=== PATIENT | female | born 1985 | race Two or more races ===

== ENCOUNTER 2024-08-12 15:44 | Emergency (ER) | payer MEDICAID, SELFPAY ==
[2024-08-12 15:44] VITALS: BMI 25.0
[2024-08-12 15:50] VITALS: BP 108/75; PULSE 96; RESP 18; TEMP 38.4; O2SAT 96
--- NOTE | 2024-08-12 15:59 | PD.EDURI ---
Upper Respiratory Inf. RME/HPI General Chief Complaint: Flu Like Symptoms Stated Complaint: HEADACHE AND BODY ACHE X3DAYS NAUSEA/VOMITING ALSO Time Seen by Provider: 08/12/24 15:57 Arrival date/time: 08/12/24 15:44 38-year-old female presents emerged department complains of headache, body aches x 3 days patient reports nausea without vomiting patient reports fever and chills. Patient reports no chance of patient reports no dysuria Limitations: no limitations Related Data Previous Rx's ?Medication ?Instructions ?Recorded amoxicillin 500 mg-potassium 1 tab PO QDAY #5 tabs 03/29/22 clavulanate 125 mg tablet (Augmentin) benzonatate 100 mg capsule 100 mg PO TID #14 caps 08/12/24 ibuprofen 600 mg tablet 600 mg PO Q6H #30 tabs 08/12/24 ondansetron 4 mg disintegrating 4 mg PO Q8H PRN nausea and 08/12/24 tablet vomiting #10 tabs Allergies Allergy/AdvReac Type Severity Reaction Status Date / Time No Known Allergies Allergy Verified 08/12/24 15:46 Review of Systems Review of Systems Systems Reviewed: All systems reviewed, normal except as documented Constitutional Constitutional: Reports system reviewed and no additional complaints, except as documented, Reports body ache(s), Reports chills, Reports fever(s) and Reports headache(s) Eyes Eyes: Reports system reviewed and no additional complaints, except as documented and Denies blurry vision ENT Ears, Nose, Mouth, and Throat: Reports system reviewed and no additional complaints, except as documented, Reports headache(s), Reports nasal congestion and Reports nasal discharge Cardiovascular Cardiovascular: Reports system reviewed and no additional complaints, except as documented, Denies chest pain and Denies dyspnea Respiratory Respiratory: Reports system reviewed and no additional complaints, except as documented, Reports chest congestion, Reports cough and Denies dyspnea Gastrointestinal Gastrointestinal: Reports system reviewed and no additional complaints, except as documented and Denies abdominal pain Integumentary/Breasts Skin/Breast: Reports system reviewed and no additional complaints, except as documented and Denies rash Neurologic Neurologic: Reports system reviewed and no additional complaints, except as documented, Reports as per HPI and Reports headache(s) Past Medical History Past Medical History NEUROLOGIC: Negative Neurological Disorders, Seizures or Peripheral Neuropathy CARDIAC: Negative Cardiac Disorders, Atrial Fibrillation, Angina, Hypercholesterolemia, Congestive Heart Failure, Deep Vein Thrombosis or Hypertension RESPIRATORY: Negative Chronic Obstructive Pulmonary Disease (COPD) or Sleep Apnea GASTROINTESTINAL: Negative Gastrointestinal Disorders or Diverticulitis GENITOURINARY: Negative Genitourinary Disorders or Renal Disease REPRODUCTIVE: Negative Pelvic Inflammatory Disease MUSCULOSKELETAL: Negative Musculoskeletal Disorders, Arthritis, Rheumatoid Arthritis or Osteoporosis ENT: Negative Blind ENDOCRINE: Negative Endocrine Disorders, Diabetes Mellitus Type 1 or Diabetes Mellitus Type 2 HEMATOLOGIC: Positive Anemia PSYCHO/SOCIAL: Negative Schizophrenia OTHER HISTORY: Negative Autoimmune Disease, Blood Transfusions, Anesthesia Reactions, Chemotherapy, MRSA, Clostridium Difficile or Cancer Family History FAMILY HISTORY: Negative Family Respiratory Disorders, Family Cardiac Disorders or Family Cancer Surgical History SURGICAL: Positive Section; Negative Coronary Artery Bypass Graft, Pacemaker, Eye Surgery, Bowel Surgery, Nephrectomy, Joint Replacement or Mastectomy Social History SMOKING STATUS: Never smoker SUBSTANCE USE: does not use ED Exam General Limitations: Present no limitations General appearance: Present alert and in no apparent distress Head Head exam: Present atraumatic Eye Eye exam: Present normal appearance, PERRL and EOMI; Absent conjunctival injection ENT ENT exam: Present normal exam, normal oropharynx and mucous membranes moist Neck Neck exam: Present normal inspection, full ROM and trachea midline; Absent tenderness, meningismus, lymphadenopathy or thyromegaly Chest Chest inspection: Present normal inspection and symmetric chest wall rise Respiratory Respiratory exam: Present normal lung sounds bilaterally; Absent respiratory distress or wheezes Cardiovascular Cardiovascular exam: Present regular rate, normal rhythm and normal heart sounds Abdominal Exam Abdominal exam: Present soft and normal bowel sounds Extremities Exam Extremities exam: Present normal inspection and full ROM Back Exam Back exam: Present normal inspection and full ROM Neurological Exam Neurological exam: Present alert, oriented X3 and CN II-XII intact Psychiatric Psychiatric exam: Present normal affect and normal mood Skin Skin exam: Present warm, dry, intact and normal color Course Quality Measures none Orders Category Date Time Status Bedside COVID-19 Antigen Test NOW Care 08/12/24 15:58 Completed Bedside Influenza A&B Antigen Test NOW Care 08/12/24 15:58 Completed Ibuprofen Tab [Motrin Tab] Med 08/12/24 15:58 Discontinued 600 mg PO X1 ONE Ondansetron Odt [Zofran Odt] Med 08/12/24 15:58 Discontinued 4 mg PO X1 ONE Vital Signs Vital signs: Vital Signs Temperature 101.1 F H 08/12/24 15:50 Pulse Rate 96 08/12/24 15:50 Respiratory Rate 18 08/12/24 15:50 Blood Pressure 108/75 08/12/24 15:50 Pulse Oximetry (%) 96 08/12/24 15:50 Oxygen Delivery Method Room Air 08/12/24 15:50 O2 saturation 96% room air within normal limits Upper Respiratory Infection MDM Narrative MDM Narrative:: 38-year-old female presents emergency department complains of headache, body aches x 3 days patient reports nausea without vomiting patient reports fever and chills. Patient reports no chance of patient reports no dysuria On exam despite having fever patient does not appear toxic Patient checked for flu and COVID patient came back positive for the flu Patient discharged home in no distress to follow-up with primary care doctor in the next 24 to 48 hours and for any worsening symptoms to return to the ER immediately Patient data External records reviewed:: [facility] previous records Clinical information provided by:: patient Social determinants that could affect healthcare access:: none Patient has the following chronic illnesses:: None How is presenting disease/condition affected by chronic disease/condition?: no chronic disease Evaluation data The following diagnostics were reviewed and interpreted by me:: lab results Lab and/or radiology exams considered but not ordered:: Patient checked for flu and COVID Interpretation Summary: Patient tested positive for flu Medications / Prescriptions Medications or Prescriptions considered but not ordered:: Given Medication administrations:: Medication Administration History Discontinued Medications Ibuprofen (Ibuprofen Tab 600 Mg Tablet) 600 mg PO X1 ONE Stop: 08/12/24 15:59 Last Admin: 08/12/24 16:07 Dose: 600 mg Documented By: SHIREEN Ondansetron HCl (Ondansetron Odt 4 Mg Tabrap) 4 mg PO X1 ONE; Protocol Stop: 08/12/24 15:59 Last Admin: 08/12/24 16:07 Dose: 4 mg Documented By: SHIREEN Given Consultations Consultation(s) initiated? (list below): No Diagnosis Upper Respiratory Differential Diagnosis: upper respiratory infection, otitis media, sinusitis, viral infection and bronchitis Most likely diagnosis given after review of the tests above:: Influenza Admission Indicated Admission indicated?: not indicated Admission Request Was there a request for admission?: No Disposition Plan Disposition Plan: Discharge Discharge Attestation Discharge Attestation: The patient and all family members were given an opportunity to ask questions and understood the discharge instructions. Discharge instructions specifically effects, indications for sooner follow up or return to the emergency department, and the expected course of current diagnosis. Patient condition: Stable Discharge Plan Plan Patient Disposition: HOME (Self Care) Disposition Comment: Stable Prescriptions/Referrals Prescriptions/Med Rec: New benzonatate 100 mg capsule 100 mg PO TID Qty: 14 0RF ibuprofen 600 mg tablet 600 mg PO Q6H Qty: 30 0RF ondansetron 4 mg tablet,disintegrating 4 mg PO Q8H PRN (Reason: nausea and vomiting) Qty: 10 0RF No Action amoxicillin-pot clavulanate [Augmentin] 500-125 mg tablet 1 tab PO QDAY Qty: 5 0RF Problem List Clinical Impression: Influenza Patient/Caregiver Discharge Instructions Education Materials: ED Influenza (Adult) Additional Instructions: Please follow up with your primary care doctor in the next 24-48hrs for any worsening symptoms return here immediately Print Language: Bengali Stand Alone Forms: Denise Award Info., Patient Portal Info Letter PA/ADMINISTRATION CLERK Supervising Physician PA/ADMINISTRATION CLERK Supervising Physician: Dr. cheung
[2024-08-12] MEDS: ONDANSETRON ODT 4 MG TABRAP PO (16:07)
[2024-08-12] MEDS: IBUPROFEN TAB 600 MG TABLET PO (16:07)
== END 2024-08-12 16:22 | disposition home or self-care (01) ==
LOC: SERX 16:09
PROVIDERS: Emergency Provider Nurse Practitioner Primary Care; PCP Physician Assistant Medical
DX: J11.1 Influenza due to unidentified influenza virus with other respiratory manifestations (principal)
CPT/HCPCS: 87400; 87811; 99283; Q0162; A9270

== ENCOUNTER 2025-02-14 10:00 | Emergency (ER) | payer MEDICAID, SELFPAY ==
[2025-02-14 10:07] VITALS: BP 113/67; PULSE 68; RESP 16; TEMP 36.6; O2SAT 99; BMI 23.0
--- NOTE | 2025-02-14 10:21 | XR_ITS ---
Examination: Foot, right, 3 views Technique: AP, oblique, lateral views foot, 3 views Date and time of exam: February 14, 2025 1030 hours INDICATIONS: Patient fell today with injury to the foot, foot pain. FINDINGS: No acute foot fracture Please see the ankle report IMPRESSION: No acute foot fracture
--- NOTE | 2025-02-14 10:21 | XR_ITS ---
EXAMINATION: Ankle, right 3 views Technique: Ankle AP, oblique, lateral 3 views Date and time of exam: February 14, 2025 1030 hours INDICATIONS: Patient fell today with injury to the ankle, ankle pain. FINDINGS: Acute fracture fibular tip without significant displacement No ankle dislocation IMPRESSION: Acute fracture fibular tip
--- NOTE | 2025-02-14 10:21 | PD.EDANKLE ---
Lower Extremity Injury RME/HPI General Chief Complaint: Ankle/Foot Injury Stated Complaint: RIGHT ANKLE INJURY / PAIN STEPPING IN HOLE Time Seen by Provider: 02/14/25 10:06 Arrival date/time: 02/14/25 10:00 39-year-old female presents emergency department today for complaint of right ankle pain patient reports he twisted her ankle on Friday while walking. Patient was no head or neck injury no other injuries Limitations: no limitations Related Data Previous Rx's ?Medication ?Instructions ?Recorded amoxicillin 500 mg-potassium 1 tab PO QDAY #5 tabs 03/29/22 clavulanate 125 mg tablet (Augmentin) benzonatate 100 mg capsule 100 mg PO TID #14 caps 08/12/24 ibuprofen 600 mg tablet 600 mg PO Q6H #30 tabs 08/12/24 ondansetron 4 mg disintegrating 4 mg PO Q8H PRN nausea and 08/12/24 tablet vomiting #10 tabs hydrocodone 5 mg-acetaminophen 325 1 tab PO BID PRN pain #10 tabs 02/14/25 mg tablet ibuprofen 600 mg tablet 600 mg PO Q6H #30 tabs 02/14/25 Allergies Allergy/AdvReac Type Severity Reaction Status Date / Time No Known Allergies Allergy Verified 02/14/25 10:03 Review of Systems Review of Systems Systems Reviewed: All systems reviewed, normal except as documented Constitutional Constitutional: Reports system reviewed and no additional complaints, except as documented, Denies fever(s) and Denies headache(s) Eyes Eyes: Reports system reviewed and no additional complaints, except as documented and Denies blurry vision ENT Ears, Nose, Mouth, and Throat: Reports system reviewed and no additional complaints, except as documented, Denies headache(s), Denies nasal congestion and Denies nasal discharge Cardiovascular Cardiovascular: Reports system reviewed and no additional complaints, except as documented, Denies chest pain and Denies dyspnea Respiratory Respiratory: Reports system reviewed and no additional complaints, except as documented, Denies chest congestion, Denies cough and Denies dyspnea Gastrointestinal Gastrointestinal: Reports system reviewed and no additional complaints, except as documented and Denies abdominal pain Musculoskeletal Musculoskeletal: Reports system reviewed and no additional complaints, except as documented, Reports abnormal gait, Reports arthralgias, Denies deformity and Reports joint swelling Integumentary/Breasts Skin/Breast: Reports system reviewed and no additional complaints, except as documented and Denies rash Neurologic Neurologic: Reports system reviewed and no additional complaints, except as documented, Reports as per HPI, Reports abnormal gait and Denies headache(s) Past Medical History Past Medical History NEUROLOGIC: Negative Neurological Disorders, Seizures or Peripheral Neuropathy CARDIAC: Negative Cardiac Disorders, Atrial Fibrillation, Angina, Hypercholesterolemia, Congestive Heart Failure, Deep Vein Thrombosis or Hypertension RESPIRATORY: Negative Chronic Obstructive Pulmonary Disease (COPD) or Sleep Apnea GASTROINTESTINAL: Negative Gastrointestinal Disorders or Diverticulitis GENITOURINARY: Negative Genitourinary Disorders or Renal Disease REPRODUCTIVE: Negative Pelvic Inflammatory Disease MUSCULOSKELETAL: Negative Musculoskeletal Disorders, Arthritis, Rheumatoid Arthritis or Osteoporosis ENT: Negative Blind ENDOCRINE: Negative Endocrine Disorders, Diabetes Mellitus Type 1 or Diabetes Mellitus Type 2 HEMATOLOGIC: Positive Anemia PSYCHO/SOCIAL: Negative Schizophrenia OTHER HISTORY: Negative Autoimmune Disease, Blood Transfusions, Anesthesia Reactions, Chemotherapy, MRSA, Clostridium Difficile or Cancer Family History FAMILY HISTORY: Negative Family Respiratory Disorders, Family Cardiac Disorders or Family Cancer Surgical History SURGICAL: Positive Section; Negative Coronary Artery Bypass Graft, Pacemaker, Eye Surgery, Bowel Surgery, Nephrectomy, Joint Replacement or Mastectomy Social History SMOKING STATUS: Never smoker SUBSTANCE USE: does not use ED Exam General Limitations: Present no limitations General appearance: Present alert and in no apparent distress Head Head exam: Present atraumatic Eye Eye exam: Present normal appearance, PERRL and EOMI ENT ENT exam: Present normal exam, normal oropharynx and mucous membranes moist Neck Neck exam: Present normal inspection, full ROM and trachea midline Chest Chest inspection: Present normal inspection and symmetric chest wall rise Respiratory Respiratory exam: Present normal lung sounds bilaterally Cardiovascular Cardiovascular exam: Present regular rate, normal rhythm and normal heart sounds Abdominal Exam Abdominal exam: Present soft and normal bowel sounds Extremities Exam Extremities exam: Present normal inspection, full ROM and tenderness (Right foot pain) Back Exam Back exam: Present normal inspection and full ROM Neurological Exam Neurological exam: Present alert, oriented X3, CN II-XII intact, normal gait and reflexes normal; Absent motor sensory deficit Psychiatric Psychiatric exam: Present normal affect and normal mood Skin Skin exam: Present warm, dry, intact and normal color Course Quality Measures none Orders Category Date Time Status Crutches .NOW Care 02/14/25 11:08 Completed Splint / Immobilizer STAT Care 02/14/25 11:08 Completed XR ankle comp RT min 3V Stat Exams 02/14/25 10:21 Completed XR foot comp RT min 3V Stat Exams 02/14/25 10:21 Completed Vital Signs Vital signs: Vital Signs Temperature 97.9 F 02/14/25 10:07 Pulse Rate 68 02/14/25 10:07 Respiratory Rate 16 02/14/25 10:07 Blood Pressure 113/67 02/14/25 10:07 Pulse Oximetry (%) 99 02/14/25 10:07 Oxygen Delivery Method Room Air 02/14/25 10:07 O2 saturation 99% room air within normal limits Procedures -ED Splint Fabrication: Clinician Made Type: Posterior Leg Reason for Splint: Optimal Positioning and Pain Management Circulation Distal to Splint: Yes Movement Distal to Splint: Yes Senation Distal to Splint: Yes Tolerance: Tolerates Well Extremity Injury, Lower MDM Narrative MDM Narrative:: 39-year-old female presents emergency department today for complaint of right ankle pain patient reports he twisted her ankle on Friday while walking. Patient was no head or neck injury no other injuries Imaging of the right ankle obtained pt has fibular tip fracture no deformity noted Patient placed in a posterior short leg splint given crutches Patient discharged home in no distress to follow-up with primary care doctor in the next 24 to 48 hours and for any worsening symptoms to return to the ER immediately Patient data External records reviewed:: [facility] previous records Clinical information provided by:: patient Social determinants that could affect healthcare access:: none Patient has the following chronic illnesses:: None How is presenting disease/condition affected by chronic disease/condition?: no chronic disease Evaluation data The following diagnostics were reviewed and interpreted by me:: radiology exam(s) Lab and/or radiology exams considered but not ordered:: Radiology obtain Interpretation Summary: Reviewed by me Medications / Prescriptions Medications or Prescriptions considered but not ordered:: Given Medication administrations:: Given Consultations Consultation(s) initiated? (list below): No Diagnosis Extremity Injury, Lower Differential Diagnosis: ankle sprain and strain and ankle fracture Most likely diagnosis given after review of the tests above:: Ankle sprain Admission Indicated Admission indicated?: not indicated Admission Request Was there a request for admission?: No Disposition Plan Disposition Plan: Discharge Discharge Attestation Discharge Attestation: The patient and all family members were given an opportunity to ask questions and understood the discharge instructions. Discharge instructions specifically effects, indications for sooner follow up or return to the emergency department, and the expected course of current diagnosis. Patient condition: Stable Discharge Plan Plan Patient Disposition: HOME (Self Care) Discharge Disposition comment: Stable Prescriptions/Referrals Prescriptions/Med Rec: New hydrocodone-acetaminophen 5-325 mg tablet 1 tab PO BID MDD 10 PRN (Reason: pain) Qty: 10 0RF ibuprofen 600 mg tablet 600 mg PO Q6H Qty: 30 0RF No Action amoxicillin-pot clavulanate [Augmentin] 500-125 mg tablet 1 tab PO QDAY Qty: 5 0RF benzonatate 100 mg capsule 100 mg PO TID Qty: 14 0RF ibuprofen 600 mg tablet 600 mg PO Q6H Qty: 30 0RF ondansetron 4 mg tablet,disintegrating 4 mg PO Q8H PRN (Reason: nausea and vomiting) Qty: 10 0RF Referrals: No Primary/Family,Physician [Primary Care Provider] - 02/15/25 Problem List Clinical Impression: Fracture of distal end of fibula Patient/Caregiver Discharge Instructions Education Materials: How Bones Heal Additional Instructions: Please follow up with your primary care doctor in the next 24-48hrs for any worsening symptoms return here immediately Please remain nonweightbearing please follow-up with PCP as discussed for worsening symptoms return immediately Print Language: Irish Stand Alone Forms: Denise Award Info., Work/School Release, Patient Portal Info Letter PA/CUFF MAKER Supervising Physician PA/ALAN Supervising Physician: Dr. zhong
== END 2025-02-14 12:25 | disposition home or self-care (01) ==
PROVIDERS: Emergency Provider Emergency Medicine
DX: S82.401A Unspecified fracture of shaft of right fibula, initial encounter for closed fracture (principal); X50.1XXA Overexertion from prolonged static or awkward postures, initial encounter; Y93.01 Activity, walking, marching and hiking
CPT/HCPCS: 29515; 73610; 73630; 99283

== ENCOUNTER → 2025-03-24 | Outpatient (CLI) | payer MEDICAID, SELFPAY ==
--- NOTE | 2025-03-24 14:29 | XR_ITS ---
EXAMINATION: Ankle, right 3 views . Technique: Ankle AP, oblique, lateral 3 views Date and time of exam: March 24, 2025 1445 hours INDICATIONS: Right hip fracture one month ago. FINDINGS: Stable alignment fracture fibular tip with early healing compared with February 14, 2025 IMPRESSION: Stable alignment fracture fibular tip with early healing compared with February 14, 2025
== END | disposition home or self-care (01) ==
PROVIDERS: PCP Family Medicine; Referring Provider Orthopaedic Surgery; Visit Provider Orthopaedic Surgery
DX: S82.401A Unspecified fracture of shaft of right fibula, initial encounter for closed fracture (principal); X58.XXXA Exposure to other specified factors, initial encounter
CPT/HCPCS: 73610

== ENCOUNTER 2025-06-04 16:08 | Emergency (ER) | payer MEDICAID, SELFPAY ==
[2025-06-04 16:09] VITALS: BMI 25.4
[2025-06-04 16:18] VITALS: BP 124/84; PULSE 72; RESP 18; TEMP 37; O2SAT 97
--- NOTE | 2025-06-04 16:25 | XR_ITS ---
Examination: CT brain head without contrast. 2-D sagittal coronal reconstructions Date and time of exam:June 04, 2025, 1646 hrs. Indications: Headaches blurred vision beginning yesterday. CTDI: vol (mGy):45.9 DLP: (mGycm):873 Technique: Multiple CT axial sections of the brain have been obtained, 5 mm slice thickness. Contrast has not been administered. 2-D sagittal, coronal reconstructions have been obtained Low dose protocols were performed. One or more of the following dose reduction techniques were used; automated exposure control, adjustment of the mA and/or KV according to patient size, use of iterative reconstruction technique. Findings: No significant ventricular enlargement. Intra-axial or extra-axial hemorrhage density is not seen. No mass effect or midline shift Basal cisterns are not remarkable. Fourth ventricle is midline. Cranial vault intact. Impression: Advise clinical correlation and follow-up accordingly Negative for acute hemorrhage, mass effect or midline shift
--- NOTE | 2025-06-04 16:25 | PD.EDRME ---
Rapid Medical Screening Exam RME Arrival date/time: 06/04/25 16:08 39-year-old female presents to the emergency room today for complaints of headache and blurred vision and eye burning sensation Chief Complaint: Eye Problems Vital signs: Vital Signs Temperature 98.6 F 06/04/25 16:18 Pulse Rate 72 06/04/25 16:18 Respiratory Rate 18 06/04/25 16:18 Blood Pressure 124/84 06/04/25 16:18 Pulse Oximetry (%) 97 06/04/25 16:18 Oxygen Delivery Method Room Air 06/04/25 16:18
[2025-06-04 16:51] LABS: Collection Type, Urine Clean Catch
[2025-06-04 16:55] LABS: Alanine Aminotransferase 14 U/L (10-49); Albumin, Serum 4.2 gm/dL (3.5-5.0); Albumin/Globulin Ratio 1.7 (1.2-2.2); Alkaline Phosphatase 78 U/L (46-116); Anion Gap 8 (7-16); Aspartate Amino Transferase 22 U/L (0-34); BUN/Creatinine Ratio 10 Ratio (12-20); Bilirubin,Total 0.3 mg/dL (0.3-1.2); Blood Urea Nitrogen 6 mg/dL (9-23); Calcium 8.9 mg/dL (8.3-10.6); Calcium (Corrected) 8.9 mg/dL (8.5-10.1); Carbon Dioxide 26.4 mMol/L (20.0-31.0); Chloride 106 mMol/L (98-107); Creatinine (Component) 0.6 mg/dL (0.6-1.3); Estimated Creatinine Clearance 100.1 mL/min (>60); Globulin 2.5 gm/dL (2.3-3.5); Glucose 106 mg/dL (74-106); Osmolality,Calculated 277 (275-295); Potassium 3.6 mMol/L (3.4-5.1); Sodium 140 mMol/L (136-145); Total Protein 6.7 gm/dL (5.7-8.2); eGFR > 60 See Note
[2025-06-04 17:02] LABS: Basophils # (Auto) 0.1 Thou/mm3 (0.0-0.2); Basophils % (Auto) 1 % (0-2.5); Eosinophils # (Auto) 0.1 Thou/mm3 (0.0-0.5); Eosinophils % (Auto) 1 % (0-10); Hematocrit 28.8 % (36.0-46.0); Hemoglobin 8.8 g/dL (12.0-16.0); Immature Granulocytes Auto 0.03 Thou/mm3 (0.00-0.00); Lymphocytes # (Auto) 2.2 Thou/mm3 (1.0-4.8); Lymphocytes % (Auto) 24 % (10-50); Mean Corpuscular HGB Conc 30.6 g/dl (31.0-37.0); Mean Corpuscular Hemoglobin 23.1 pg (25.0-35.0); Mean Corpuscular Volume 76 fL (80-100); Monocytes # (Auto) 0.7 Thou/mm3 (0.0-0.8); Monocytes % (Auto) 7 % (0-12); Neutrophils # (Auto) 6.0 Thou/mm3 (1.8-7.7); Neutrophils % (Auto) 66 % (37-80); Nucleated Red Blood Cell # 0.00 Thou/mm3 (0.00-0.00); Nucleated Red Blood Cell % 0 /100 WBC (0); Platelet Count 386 Thou/mm3 (140-440); RDW Standard Deviation 43.5 fL (36.4-46.3); Red Blood Count 3.81 Miln/mm3 (4.00-5.20); White Blood Count 9.1 Thou/mm3 (3.6-11.0)
[2025-06-04 17:08] LABS: Bilirubin,Urine Negative (Negative); Blood,Urine Negative (Negative); Clarity,Urine Clear (Clear/Hazy); Color,Urine Colorless (Lt Yel-Yel); Culture Indicated,Urine Not Indicated; Glucose, Urine Negative (Negative); Ketones,Urine Negative (Negative); Leukocyte Esterase,Urine Negative (Negative); Nitrite,Urine Negative (Negative); PH,Urine 6.5 (5.0-7.0); Protein,Urine Negative (Neg - Trace); RBC,Urine 1 /hpf (0-3); Specific Gravity,Urine 1.005 (1.001-1.035); Squamous Epithelial Cell,Urine 6 /hpf (0-5); Urobilinogen,Urine Negative mg/dL (0.0-1.0); WBC,Urine 2 /hpf (0-5)
[2025-06-04 17:38] LABS: HCG Qualitative,Urine Negative
[2025-06-04 18:01] LABS: Amphetamine/Methamp Scrn,U Negative (Negative); Barbiturate Screen,Urine Negative (Negative); Benzodiazepines Screen,Urine Negative (Negative); Benzoylecgonine Screen, Ur Negative (Negative); Fentanyl Screen,Urine Negative (Negative); Opiate Screen,Urine Negative (Negative); THC Screen,Urine Negative (Negative)
--- NOTE | 2025-06-04 18:13 | EDNOTE_ITS ---
ED Eye Problem RME/HPI General Chief complaint: Eye Problems Stated complaint: BURNING BOTH EYES/HEADACHE TODAY Time Seen by Provider: 06/04/25 17:33 Arrival date/time: 06/04/25 16:08 RME / HPI RME / HPI Narrative: 06/04/25 16:08 39-year-old female presents to the emergency room today for complaints of headache and blurred vision and eye burning sensation See [facility] for Dr. Hayward's HPI Documentation. Related Data Previous Rx's ?Medication ?Instructions ?Recorded amoxicillin 500 mg-potassium 1 tab PO QDAY #5 tabs clavulanate 125 mg tablet (Augmentin) benzonatate 100 mg capsule 100 mg PO TID #14 caps 07/17 05/08 ibuprofen 600 mg tablet 600 mg PO Q6H #30 tabs 08/12 ondansetron 4 mg disintegrating 4 mg PO Q8H PRN nausea and 08/12/24 tablet vomiting #10 tabs hydrocodone 5 mg-acetaminophen 325 1 tab PO BID PRN pa in #10 tabs 02/14/25 mg tablet ibuprofen 600 mg tablet 600 mg PO Q6H #30 tabs 02/14 acetaminophen 300 mg-codeine 30 mg 2 tab PO Q8H PRN pa in #20 tabs 06/04/25 tablet ondansetron 4 mg disintegrating 4 mg PO TID PRN nausea and 06/04/25 tablet vomiting 30 days #10 tabs sumatriptan succinate 25 mg tablet 25 mg PO Q2H PRN mi graine headache 06/04/25 (Imitrex) #10 tabs Allergies Allergy/AdvReac Type Severity Reaction Status Date / Time No Known Allergies Allergy Verified 06/04/25 16:11 Review of Systems Review of Systems Systems Reviewed: All systems reviewed, normal except as documented Past Medical History Past Medical History HEMATOLOGIC: Positive Anemia Social History SMOKING STATUS: Current some day smoker ED Exam Narrative Physical exam: See [facility] for Dr. Hayward's Physical Exam Documentation. Course Quality Measures none Orders Category Date Time Status CT head/brain wo con Stat Exams 06/04/25 16:25 Completed CBC Stat Lab 06/04/25 16:32 Completed CMP [Comprehensive Metabolic Panel] Stat Lab 06/04/25 16:32 Completed Drug Screen,Urine Stat Lab 06/04/25 16:40 Completed HCG Qualitative,Urine Stat Lab 06/04/25 16:40 Completed UA, C/S IF [Urinalysis, C/S if Indicated] Stat Lab 06/04/25 16:40 Completed ACETAMINOPHEN w/COD 300-30 [Tylenol w/Cod #3] Med 06/04/25 18:15 Discontinued 2 tab PO X1 ONE Ondansetron Odt [Zofran Odt] Med 06/04/25 18:15 Discontinued 4 mg PO X1 ONE Vital Signs Vital signs: Vital Signs Temperature 98.6 F 06/04/25 16:18 Pulse Rate 72 06/04/25 16:18 Respiratory Rate 18 06/04/25 16:18 Blood Pressure 124/84 06/04/25 16:18 Pulse Oximetry (%) 97 06/04/25 16:18 Oxygen Delivery Method Room Air 06/04/25 16:18 Eye MDM Narrative MDM Narrative:: This section includes all my notes and documentations, including HPI, PE, and ED course. Rodrick Hayward MD HPI: 39 y/o female with Hx of Anemia presents with headache, blurred vision, photophobia, and phonophobia since yesterday. No speech impairment. No loss of power in the arms or legs. No fever or chills. No other complaints. ROS: All negative except as documented in HPI. Physical Exam: General: Alert and oriented. No acute distress. Eyes: Conjunctivae and lids clear. EOMI. PERRL. ENT: No nasal congestion. Pharynx normal. Tympanic membrane normal bilaterally. Neck: Supple. Heart: RRR. Lungs: No respiratory distress. Good air movement. No rhonchi, wheezing, rales. Abdomen: Soft and nontender. Skin: Warm and dry. Neuro: Alert and oriented X 3. Cranial Nerves II-XII grossly intact. No peripheral motor deficits. I reviewed all diagnostic test results: My review of the Head/Brain CT report is NAD. Blood tests and urine tests unremarkable. At this point, diagnoses include: Migraine headache Treatment here included: Tylenol with Codeine #3 Zofran 4 mg Significant improvement noted. Recommended outpatient care. Based on my best medical judgment, made decision no further evaluation or treatment indicated at this time. Patient understands and agrees to the discharge instructions customized and printed, see below. Discharge Instructions from Dr. Hayward: --After evaluation, your symptoms are due to migraine headache.? Fortunately, there is no life-threatening condition.? Such as stroke or brain tumor. --When you get home, try to get some rest in the dark.? This can be the best treatment for migraine headache. --Try to eat regular nutritious meals, maintain good hydration, decrease stress, and get regular physical exercise.? Increase oral fluid and maintain clear urine.? If dark or yellow, increase oral fluid. --Take Zofran for nausea.? With migraines, controlling your nausea as soon as possible can help. --Take Imitrex as needed.? This works better if you take it at the onset of a migraine headache. Tylenol with codeine for severe pain. --See a private doctor of your choice on 06/06/2025 for recheck and further care. Ask to review all test results and official radiology reports, to make sure you receive all necessary follow-ups and monitoring. Ask to consider a referral to see a neurologist and MRI brain imaging. --Seek immediate medical care with worsening or with any concerns.? Rodrick Hayward MD Patient data External records reviewed:: [facility] previous records (Reviewed prior ED records from 02/14/25. Patient was seen for Fracture of distal end of fibula.) Clinical information provided by:: patient Social determinants that could affect healthcare access:: none Patient has the following chronic illnesses:: Anemia How is presenting disease/condition affected by chronic disease/condition?: exacerbated by Evaluation data The following diagnostics were reviewed and interpreted by me:: lab results and radiology exam(s) Lab and/or radiology exams considered but not ordered:: None Interpretation Summary: I reviewed all diagnostic test results: My review of the Head/Brain CT report is NAD. Blood tests and urine tests unremarkable. Medications / Prescriptions Medications or Prescriptions considered but not ordered:: None Medication administrations:: Medication Administration History Discontinued Medications Acetaminophen/Codeine Phosphate (Acetaminophen W/Cod 300-30 Tablet) 2 tab PO X1 ONE Stop: 06/04/25 18:16 Last Admin: 06/04/25 18:27 Dose: 2 tab Documented By: CHERYL Ondansetron HCl (Ondansetron Odt 4 Mg Tabrap) 4 mg PO X1 ONE; Protocol Stop: 06/04/25 18:16 Last Admin: 06/04/25 18:27 Dose: 4 mg Documented By: CHERYL Tylenol with Codeine #3, Zofran 4 mg Consultations Consultation(s) initiated? (list below): No Diagnosis Eye Problem Differential Diagnosis: corneal abrasion, acute iritis, hyphema, subconjunctival hemorrhage, glaucoma, ruptured globe and other (Migraine headache) Most likely diagnosis given after review of the tests above:: Migraine headache Admission Indicated Admission indicated?: not indicated Explain why admission is indicated or not indicated:: With significant improvement and no condition needing emergent intervention, the re was no indication for admission. Admission Request Was there a request for admission?: No Disposition Plan Disposition Plan: Discharge Discharge Attestation Discharge Attestation: The patient and all family members were given an opportunity to ask questions and understood the discharge instructions. Discharge instructions specifically effects, indications for sooner follow up or return to the emergency department, and the expected course of current diagnosis. Patient condition: Stable Discharge Plan Plan Patient Disposition: HOME (Self Care) Prescriptions/Referrals Prescriptions/Med Rec: New sumatriptan succinate [Imitrex] 25 mg tablet 25 mg PO Q2H PRN (Reason: migraine headache) Qty: 10 0RF Rx Instructions: do not exceed 8 doses per 24 hrs acetaminophen-codeine 300-30 mg tablet 2 tab PO Q8H MDD 6 PRN (Reason: pain) Qty: 20 0RF ondansetron 4 mg tablet,disintegrating 4 mg PO TID PRN (Reason: nausea and vomiting) 30 Days Qty: 10 0RF No Action amoxicillin-pot clavulanate [Augmentin] 500-125 mg tablet 1 tab PO QDAY Qty: 5 0RF benzonatate 100 mg capsule 100 mg PO TID Qty: 14 0RF ibuprofen 600 mg tablet 600 mg PO Q6H Qty: 30 0RF ondansetron 4 mg tablet,disintegrating 4 mg PO Q8H PRN (Reason: nausea and vomiting) Qty: 10 0RF hydrocodone-acetaminophen 5-325 mg tablet 1 tab PO BID MDD 10 PRN (Reason: pain) Qty: 10 0RF ibuprofen 600 mg tablet 600 mg PO Q6H Qty: 30 0RF Referrals: No Primary/Family,Physician [Primary Care Provider] - In 1 week Problem List Clinical Impression: Migraine headache Patient/Caregiver Discharge Instructions Discharge Activity: activity as tolerated Education Materials: ED Headache, Migraine, Classic Additional Instructions: Discharge Instructions from Dr. Hayward: --After evaluation, your symptoms are due to migraine headache.? Fortunately, there is no life-threatening condition.? Such as stroke or brain tumor. --When you get home, try to get some rest in the dark.? This can be the best treatment for migraine headache. --Try to eat regular nutritious meals, maintain good hydration, decrease stress, and get regular physical exercise.? Increase oral fluid and maintain clear urine.? If dark or yellow, increase oral fluid. --Take Zofran for nausea.? With migraines, controlling your nausea as soon as possible can help. --Take Imitrex as needed.? This works better if you take it at the onset of a migraine headache. Tylenol with codeine for severe pain. --See a private doctor of your choice on 06/06/2025 for recheck and further care. Ask to review all test results and official radiology reports, to make sure you receive all necessary follow-ups and monitoring. Ask to consider a referral to see a neurologist and MRI brain imaging. --Seek immediate medical care with worsening or with any concerns.? Instrucciones de jayashree del Dr. Hayward: --Despu?s de la evaluaci?n, maria guadalupe s?ntomas se deben a alecia migra?a. Afortunadamente, no se trata de alecia afecci?n potencialmente mortal, morenita un derrame cerebral o un tumor cerebral. --Al llegar a casa, intente descansar un poco en la oscuridad. [place] puede ser el mejor tratamiento para la migra?a. --Intente comer alimentos nutritivos con regularidad, mantenerse nelda hidratado, reducir el estr?s y hacer ejercicio f?sico con regularidad. Aumente la ingesta de l?quidos y mantenga la orina galindo. Si la orina es oscura o amarilla, aumente la ingesta de l?quidos. --[place] Zofran para las n?useas. En dequan de migra?as, controlar las n?useas lo antes posible puede ser ?til. --[place] Imitrex seg?n sea necesario. [place] funciona mejor si se reese al inicio de la migra?a. --Tylenol con code?na para el dolor intenso. --Consulte con un m?dico privado de sun elecci?n el 06/06/2025 para alecia revisi?n y atenci?n adicional. Solicite revisar todos los resultados de las pruebas y los informes radiol?gicos oficiales para asegurarse de recibir todos los seguimientos y la monitorizaci?n necesarios. [place] que se considere alecia derivaci?n a un neur?logo y alecia resonancia magn?afua cerebral. --Busque atenci?n m?dica inmediata si sun estado empeora o tiene alguna inquietud. Print Language: [place] Stand Alone Forms: Denise Award Info., Patient Portal Info Letter
[2025-06-04] MEDS: ONDANSETRON ODT 4 MG TABRAP PO (18:27)
[2025-06-04] MEDS: ACETAMINOPHEN w/COD 300-30 TABLET 2 TAB PO (18:27)
== END 2025-06-04 18:33 | disposition home or self-care (01) ==
PROVIDERS: Nurse Practitioner Primary Care; Emergency Provider Emergency Medicine
DX: G43.909 Migraine, unspecified, not intractable, without status migrainosus (principal); D64.9 Anemia, unspecified; F17.210 Nicotine dependence, cigarettes, uncomplicated
CPT/HCPCS: 36415; 70450; 80053; 80307; 81001; 81025; 85025; 99284; Q0162; A9270